=== PATIENT | male | born 1970 | race African-American/Black ===

== ENCOUNTER 2017-09-24 11:30 | Emergency (ER) | payer BC, OTHER ==
[~2017-09-24] VITALS: Ht 170.2 cm; Wt 78.5 kg
--- OUTSIDE RECORDS SUMMARY | 2017-09-24 11:33 | XMS REPORT | Clinical Summary ---
Author Author [facility] Address Unknown Phone Unavailable Care Team Providers Care Broom Builder Name Role Phone PCP Unavailable Allergies No Known Allergies Current Medications Prescription Sig. Disp. Refills Start End Date Status Date phenylephrine 2 sprays by Each Nare 15 mL 0 05/14/19 11/20/19 Discontin (CHRIS-SYNEPHRINE) 1 % [place] route every 6 (six) hours 17 17 ued nasal spray as needed. cetirizine-pseudoephedrin Take 1 tablet by mouth 2 60 tablet 11 11/20/19 Discontin e (ZYRTEC-D) 5 mg-120 mg (two) times daily. 17 17 ued per tablet sod exdxt-bvryil-ewcqnn 1 packet by Nasal route 2 30 packet 0 11/20/19 Discontin bottle (AYR SALINE NASAL (two) times daily. 17 17 ued RINSE) pkdv traMADol (ULTRAM) 50 mg Take 1 tablet (50 mg 20 tablet 0 11/20/19 tablet total) by mouth every 6 17 17 (six) hours as needed for Pain for up to 10 days. Max Daily Amount: 200 mg cyclobenzaprine Take 1 tablet (10 mg 20 tablet 0 11/20/19 12/10/19 (FLEXERIL) 10 MG tablet total) by mouth every 17 17 night as needed for up to 20 days. meloxicam (MOBIC) 15 MG Take 1 tablet (15 mg 30 tablet 0 11/20/19 tablet total) by mouth daily for 17 17 30 days. Active Problems Not on file Encounters Date Type Specialty Care Team Description 11/19/2016 Emergency Emergency Medicine Lazaro, Will, DO Acute pain of left shoulder (Primary Dx) after 09/23/2016 Social History Tobacco Use Types Packs/Day Years Used Date Never Smoker Alcohol Use Drinks/Week oz/Week Comments Yes socially Sex Assigned at Date Recorded Not on file Last Filed Vital Signs Vital Sign Reading Time Taken Blood Pressure 130/80 11/19/2016 9:44 PM CDT Pulse 70 11/19/2016 9:44 PM CDT Temperature 36.5 C (97.7 F) 11/19/2016 8:03 PM CDT Respiratory Rate 16 11/19/2016 9:44 PM CDT Oxygen Saturation 100% 11/19/2016 9:44 PM CDT Inhaled Oxygen - - Concentration Weight 79.4 kg (175 lb) 11/19/2016 8:03 PM CDT Height - - Body Mass Index - - Plan of Treatment Not on file Results * XR spine cervical complete 4 views min (11/19/2016 9:04 PM) Specimen Performing Laboratory [facility] Narrative FINAL REPORT PROCEDURE: RAD, SPINE, CERVICAL, COMPLETE (MIN 4 VIEWS), RAD, SHOULDER, COMPLETE (MIN 2 VIEWS), LEFT CLINICAL INFORMATION: neck pain COMPARISON: None FINDINGS/IMPRESSION: Cervical spine: Cervical spine is demonstrated from skull base to T1 without demonstration of a fracture or dislocation. Lateral masses align normally with C2 are not displaced. Minimal endplate degenerative changes are present in the cervical spine at C5-C6 and C6-C7. No prevertebral soft tissue swelling. Left shoulder: No fracture or dislocation. Humeral head aligns normally within the glenoid. No significant soft tissue swelling or radiodense foreign body. Signed: Cm Ashton MD Report Verified Date/Time:11/19/2016 21:22:00 Reading Location: [address] Transitional Reading Room Procedure Note Interface, External Ris In - 11/19/2016 9:24 PM CDT FINAL REPORT PROCEDURE: RAD, SPINE, CERVICAL, COMPLETE (MIN 4 VIEWS), RAD, SHOULDER, COMPLETE (MIN 2 VIEWS), LEFT CLINICAL INFORMATION: neck pain COMPARISON: None FINDINGS/IMPRESSION: Cervical spine: Cervical spine is demonstrated from skull base to T1 without demonstration of a fracture or dislocation. Lateral masses align normally with C2 are not displaced. Minimal endplate degenerative changes are present in the cervical spine at C5-C6 and C6-C7. No prevertebral soft tissue swelling. Left shoulder: No fracture or dislocation. Humeral head aligns normally within the glenoid. No significant soft tissue swelling or radiodense foreign body. Signed: Cm Ashton MD Report Verified Date/Time: 11/19/2016 21:22:00 Reading Location: [address] Transitional Reading Room * XR shoulder complete 2 views min left (11/19/2016 9:03 PM) Specimen Performing Laboratory [facility] Narrative FINAL REPORT PROCEDURE: RAD, SPINE, CERVICAL, COMPLETE (MIN 4 VIEWS), RAD, SHOULDER, COMPLETE (MIN 2 VIEWS), LEFT CLINICAL INFORMATION: neck pain COMPARISON: None FINDINGS/IMPRESSION: Cervical spine: Cervical spine is demonstrated from skull base to T1 without demonstration of a fracture or dislocation. Lateral masses align normally with C2 are not displaced. Minimal endplate degenerative changes are present in the cervical spine at C5-C6 and C6-C7. No prevertebral soft tissue swelling. Left shoulder: No fracture or dislocation. Humeral head aligns normally within the glenoid. No significant soft tissue swelling or radiodense foreign body. Signed: Cm Ashton MD Report Verified Date/Time:11/19/2016 21:22:00 Reading Location: [address] Transitional Reading Room Procedure Note Interface, External Ris In - 11/19/2016 9:24 PM CDT FINAL REPORT PROCEDURE: RAD, SPINE, CERVICAL, COMPLETE (MIN 4 VIEWS), RAD, SHOULDER, COMPLETE (MIN 2 VIEWS), LEFT CLINICAL INFORMATION: neck pain COMPARISON: None FINDINGS/IMPRESSION: Cervical spine: Cervical spine is demonstrated from skull base to T1 without demonstration of a fracture or dislocation. Lateral masses align normally with C2 are not displaced. Minimal endplate degenerative changes are present in the cervical spine at C5-C6 and C6-C7. No prevertebral soft tissue swelling. Left shoulder: No fracture or dislocation. Humeral head aligns normally within the glenoid. No significant soft tissue swelling or radiodense foreign body. Signed: Cm Ashton MD Report Verified Date/Time: 11/19/2016 21:22:00 Reading Location: [place] [id number] Transitional Reading Room after 09/23/2016
[2017-09-24] MEDS ORDERED: KETOROLAC TROMETHAMINE 30 MG/ML VIAL IM STA (12:08)
[2017-09-24] MEDS ORDERED: PREDNISONE 20 MG TAB PO ONE (12:15)
[2017-09-24 13:21] VITALS: BP 131/83
== END 2017-09-24 13:30 | disposition home or self-care (01) ==
LOC: FSED 11:30
DX: M75.22 Bicipital tendinitis, left shoulder (principal); I10 Essential (primary) hypertension; R07.9 Chest pain, unspecified
CPT/HCPCS: 80048; 84484; 93005; 99283; J1885

== ENCOUNTER → 2020-09-02 | Outpatient (CLI) | payer OTHER | LOC: MRI 07:26 | PROVIDERS: ATTEND Internal Medicine | DX: M54.12 Radiculopathy, cervical region (principal); M79.602 Pain in left arm | CPT/HCPCS: 72141 ==